=== PATIENT | male | born 1955 | race Caucasian/White ===

== ENCOUNTER 2018-02-25 11:26 | Day surgery (SDC) | payer OTHER ==
[2018-02-25] MEDS ORDERED: FENTAnyl 50 MCG/ML VIAL (14:18)
[2018-02-25] MEDS ORDERED: PROPOFOL 20 ML (14:18)
== END 2018-02-25 17:14 | disposition home or self-care (01) ==
LOC: GIL 11:26
DX: D12.2 Benign neoplasm of ascending colon (principal); K31.89 Other diseases of stomach and duodenum
CPT/HCPCS: 43239; 88305; 88312

== ENCOUNTER → 2018-07-23 | Outpatient (CLI) | payer OTHER | END | disposition home or self-care (01) | LOC: NUC 09:02 | DX: K21.9 Gastro-esophageal reflux disease without esophagitis (principal) | CPT/HCPCS: 78264 ==

== ENCOUNTER 2018-10-26 12:51 | Inpatient (IN) | payer OTHER ==
[2018-10-26 14:08] LABS: ADD MAN DIFF? NO
[2018-10-26 14:13] LABS: WHITE BLOOD COUNT 4.8 10^3/ul (4.8-10.8)
[2018-10-26 14:13] LABS: BASOPHILS % 0.8 % (0.0-2.0); EOSINOPHILS # 0.1 10^3/ul (0.0-0.5); EOSINOPHILS % 1.1 % (0.0-7.0); HEMATOCRIT 34.7 % (42.0-52.0); HEMOGLOBIN 11.2 g/dl (14.0-18.0); LYMPHOCYTES # 1.3 10^3/ul (0.8-2.9); LYMPHOCYTES % 26.3 % (15.0-51.0); MEAN CORPUSCULAR HGB CONC 32.3 g/dl (32.0-37.0); MEAN CORPUSCULAR VOLUME 83.6 fl (82.0-101.0); MEAN PLATELET VOLUME 10.7 fl (7.4-10.4); MONOCYTE # 0.4 10^3/ul (0.3-0.9); MONOCYTES % 8.6 % (0.0-11.0); PLATELET COUNT 313 10^3/UL (140-415); RED BLOOD COUNT 4.15 10^6/ul (4.70-6.10); RED CELL DISTRIBUTION WIDTH 17.3 % (11.5-14.5)
[2018-10-26 14:32] LABS: ALANINE AMINOTRANSFERASE 28 IU/L (13-69); ALBUMIN 3.6 g/dl (3.3-4.9); ALBUMIN/GLOBULIN RATIO 1.24; ALKALINE PHOSPHATASE 65 IU/L (42-121); ANION GAP 6 (5-13); ASPARTATE AMINO TRANSFERASE 24 IU/L (15-46); BILIRUBIN,INDIRECT 0.1 mg/dl (0-1.1); BILIRUBIN,TOTAL 0.1 mg/dl (0.2-1.3); BLOOD UREA NITROGEN 16 mg/dl (7-20); CALCIUM 9.9 mg/dl (8.4-10.2); CARBON DIOXIDE 27 mmol/L (21-31); CHLORIDE 102 mmol/L (97-110); CREATININE 1.02 mg/dl (0.61-1.24); Estimated GFR > 60 mL/min (>60); GLUCOSE 116 mg/dl (70-220); LIPASE 87 U/L (23-300); POTASSIUM 4.2 mmol/L (3.5-5.1); SODIUM 135 mmol/L (135-144); TOTAL PROTEIN 6.5 g/dl (6.1-8.1)
[2018-10-26] MEDS: IOHEXOL 14.3 MG(I)/ML (ADULT) BTL PO (16:29)
[2018-10-26] MEDS ORDERED: ACETAMINOPHEN 325 MG TAB PO (19:00)
[2018-10-26] MEDS ORDERED: ONDANSETRON 4 MG INJ IV ×2 (19:00→19:30)
[2018-10-26] MEDS ORDERED: NACL 0.9% 3 ML SYG IV (19:30)
[2018-10-26] MEDS ORDERED: ALBUTEROL/IPRATROPIUM (NEB) 3 ML AMP HHN (19:30)
[2018-10-26] MEDS ORDERED: DOCUSATE SODIUM 100 MG CAP PO (19:30)
[2018-10-26] MEDS ORDERED: NITROGLYCERIN (SL) 0.4 MG TAB SL (19:30)
[2018-10-26] MEDS ORDERED: LORAZEPAM 2 MG INJ IV (19:30)
[2018-10-26] MEDS ORDERED: hydrALAzine 20 MG INJ IV (19:30)
[2018-10-26] MEDS ORDERED: MAGNESIUM HYDROXIDE 30ML CUP PO (19:30)
[2018-10-26 19:35] LABS: INR 0.96; PROTIME 12.9 Sec (11.9-14.9)
[2018-10-26 19:36] LABS: PARTIAL THROMBOPLASTIN TIME 39.3 Sec (23.0-35.0)
[2018-10-26 20:25] LABS: FREE T4 (FREE THYROXINE) 1.18 ng/dl (0.78-2.44)
[2018-10-26] MEDS: PIPER-TAZO 3.375 GM IV (PMX) 100 ML IVPB (21:50)
[2018-10-26] MEDS: SOD CHLORIDE 0.45% 1,000 ML IV (21:50)
[2018-10-27] MEDS: PANTOPRAZOLE (EC) 40 MG TAB PO (05:08)
[2018-10-27] MEDS: PIPER-TAZO 3.375 GM IV (PMX) 100 ML IVPB ×3 (05:30→22:54)
[2018-10-27 05:36] LABS: ADD MAN DIFF? NO
[2018-10-27 05:42] LABS: WHITE BLOOD COUNT 5.6 10^3/ul (4.8-10.8)
[2018-10-27 05:42] LABS: BASOPHIL # 0.1 10^3/ul (0.0-0.1); BASOPHILS % 0.9 % (0.0-2.0); EOSINOPHILS # 0.1 10^3/ul (0.0-0.5); EOSINOPHILS % 1.3 % (0.0-7.0); HEMATOCRIT 34.7 % (42.0-52.0); HEMOGLOBIN 11.3 g/dl (14.0-18.0); LYMPHOCYTES # 1.3 10^3/ul (0.8-2.9); LYMPHOCYTES % 23.8 % (15.0-51.0); MEAN CORPUSCULAR HEMOGLOBIN 26.8 pg (29.0-33.0); MEAN CORPUSCULAR HGB CONC 32.6 g/dl (32.0-37.0); MEAN CORPUSCULAR VOLUME 82.2 fl (82.0-101.0); MEAN PLATELET VOLUME 10.6 fl (7.4-10.4); MONOCYTE # 0.4 10^3/ul (0.3-0.9); MONOCYTES % 7.7 % (0.0-11.0); NEUTROPHIL # 3.7 10^3/ul (1.6-7.5); NEUTROPHILS % 66.1 % (39.0-77.0); PLATELET COUNT 338 10^3/UL (140-415); RED BLOOD COUNT 4.22 10^6/ul (4.70-6.10)
[2018-10-27 06:10] LABS: CHOLESTEROL 145 mg/dl (100-200)
[2018-10-27 06:10] LABS: CHOL/HDL RATIO 3.3 RATIO; HDL CHOLESTEROL 43 mg/dl (30-78); LDL CHOLESTEROL,CALCULATED 81 mg/dl; TRIGLYCERIDES 105 mg/dl (0-149)
[2018-10-27 06:16] LABS: ANION GAP 5 (5-13); BLOOD UREA NITROGEN 12 mg/dl (7-20); CALCIUM 9.9 mg/dl (8.4-10.2); CARBON DIOXIDE 26 mmol/L (21-31); CHLORIDE 104 mmol/L (97-110); CREATININE 0.98 mg/dl (0.61-1.24); Estimated GFR > 60 mL/min (>60); GLUCOSE 81 mg/dl (70-220); MAGNESIUM 2.1 mg/dl (1.7-2.5); PHOSPHORUS 3.5 mg/dl (2.5-4.9); POTASSIUM 4.4 mmol/L (3.5-5.1); SODIUM 135 mmol/L (135-144)
[2018-10-27 06:32] LABS: THYROID STIMULATING HORMONE 0.682 MIU/L (0.465-4.680)
[2018-10-27 06:52] LABS: HEMOGLOBIN A1C 5.9 % (0-5.9)
[2018-10-27] MEDS: IOHEXOL 300MG/ML 150 ML BTL (08:03)
[2018-10-27] MEDS: SOD CHLORIDE 0.9% 100 ML (08:03)
[2018-10-27] MEDS: SOD CHLORIDE 0.45% 1,000 ML IV (12:01)
[2018-10-27 13:04] LABS: TROPONIN-I < 0.012 ng/ml (0.000-0.120)
[2018-10-27] MEDS ORDERED: SEVOFLURANE 15 MIN (15:32)
[2018-10-27] MEDS ORDERED: FENTAnyl 50 MCG/ML VIAL ×3 (15:32→17:07)
[2018-10-27] MEDS ORDERED: ROCURONIUM 50 MG INJ (15:32)
[2018-10-27] MEDS ORDERED: MIDAZOLAM 1 MG/ML 2 ML INJ (15:32)
[2018-10-27] MEDS ORDERED: PROPOFOL 200 MG INJ (15:32)
[2018-10-27] MEDS ORDERED: ROPIVACAINE 0.2% 20 ML VIAL (15:37)
[2018-10-27] MEDS ORDERED: ONDANSETRON 4 MG INJ (16:46)
[2018-10-27] MEDS ORDERED: CEFAZOLIN 1 GM INJ (16:46)
[2018-10-27] MEDS ORDERED: PHENYLephrine (100 MCG/ML) 10ML SYG (16:46)
[2018-10-27] MEDS ORDERED: FAMOTIDINE 20 MG INJ (16:46)
[2018-10-27] MEDS ORDERED: HETASTARCH 6% NACL 500 ML (16:46)
[2018-10-27] MEDS ORDERED: METOCLOPRAMIDE 10 MG INJ (16:46)
[2018-10-27] MEDS ORDERED: metroNIDAZOLE 500 MG/NS (PMX) 100 ML IVPB (16:46)
[2018-10-27] MEDS ORDERED: SUGAMMADEX SODIUM 200 MG/2 ML VIAL IV (16:48)
[2018-10-27] MEDS: FENTAnyl 50 MCG/ML VIAL IV (17:24)
[2018-10-27] MEDS: HYDROmorphONE 1 MG/5 ML IV SYRINGE IV (17:26)
[2018-10-27] MEDS: ONDANSETRON 4 MG INJ IV (17:26)
[2018-10-27] MEDS ORDERED: EPHEDrine 25 MG/5 ML SYG IV (17:30)
[2018-10-27] MEDS ORDERED: MEPERIDINE 25 MG INJ IV (17:30)
[2018-10-27] MEDS ORDERED: hydrALAzine 20 MG INJ IV (17:30)
[2018-10-27] MEDS ORDERED: HYDROmorphONE 1 MG/5 ML IV SYRINGE IV ×2 (17:30)
[2018-10-27] MEDS ORDERED: DIPHENHYDRAMINE 50 MG INJ IV (17:30)
[2018-10-27] MEDS ORDERED: LABETALOL HCL 20MG INJ IV (17:30)
[2018-10-27] MEDS ORDERED: METOCLOPRAMIDE 10 MG INJ IV (17:30)
[2018-10-27] MEDS ORDERED: FENTAnyl 50 MCG/ML VIAL IV ×2 (17:30)
[2018-10-27] MEDS: morphine 2 MG INJ IV (20:24)
[2018-10-28] MEDS: SOD CHLORIDE 0.45% 1,000 ML IV ×2 (00:10→18:24)
[2018-10-28] MEDS: morphine 4 MG/ML VIAL IV ×6 (00:55→23:42)
[2018-10-28] MEDS ORDERED: morphine 2 MG INJ IV (03:30)
[2018-10-28] MEDS: PIPER-TAZO 3.375 GM IV (PMX) 100 ML IVPB ×3 (05:36→23:42)
[2018-10-28] MEDS: PANTOPRAZOLE (EC) 40 MG TAB PO (05:36)
[2018-10-28] MEDS: PANTOPRAZOLE 40 MG INJ IV (05:36)
[2018-10-28 06:37] LABS: ADD MAN DIFF? NO
[2018-10-28 06:46] LABS: WHITE BLOOD COUNT 11.7 10^3/ul (4.8-10.8)
[2018-10-28 06:46] LABS: BASOPHILS % 0.2 % (0.0-2.0); HEMATOCRIT 35.5 % (42.0-52.0); HEMOGLOBIN 11.5 g/dl (14.0-18.0); LYMPHOCYTES # 0.8 10^3/ul (0.8-2.9); LYMPHOCYTES % 6.4 % (15.0-51.0); MEAN CORPUSCULAR HEMOGLOBIN 26.9 pg (29.0-33.0); MEAN CORPUSCULAR HGB CONC 32.4 g/dl (32.0-37.0); MEAN CORPUSCULAR VOLUME 82.9 fl (82.0-101.0); MEAN PLATELET VOLUME 10.3 fl (7.4-10.4); MONOCYTE # 0.6 10^3/ul (0.3-0.9); MONOCYTES % 4.8 % (0.0-11.0); NEUTROPHIL # 10.3 10^3/ul (1.6-7.5); NEUTROPHILS % 88.2 % (39.0-77.0); PLATELET COUNT 323 10^3/UL (140-415); RED BLOOD COUNT 4.28 10^6/ul (4.70-6.10); RED CELL DISTRIBUTION WIDTH 17.5 % (11.5-14.5)
[2018-10-28 07:01] LABS: ANION GAP 4 (5-13); BLOOD UREA NITROGEN 12 mg/dl (7-20); CALCIUM 8.8 mg/dl (8.4-10.2); CARBON DIOXIDE 25 mmol/L (21-31); CHLORIDE 104 mmol/L (97-110); Estimated GFR > 60 mL/min (>60); GLUCOSE 78 mg/dl (70-220); SODIUM 133 mmol/L (135-144)
[2018-10-29] MEDS: SOD CHLORIDE 0.45% 1,000 ML IV ×2 (02:50→16:10)
[2018-10-29] MEDS: morphine 4 MG/ML VIAL IV ×3 (04:50→20:36)
[2018-10-29] MEDS: PANTOPRAZOLE (EC) 40 MG TAB PO (06:00)
[2018-10-29] MEDS: PANTOPRAZOLE 40 MG INJ IV (06:02)
[2018-10-29] MEDS: PIPER-TAZO 3.375 GM IV (PMX) 100 ML IVPB ×3 (06:02→22:02)
[2018-10-29 06:51] LABS: ADD MAN DIFF? NO
[2018-10-29 07:02] LABS: BASOPHILS % 0.3 % (0.0-2.0); HEMATOCRIT 32.9 % (42.0-52.0); LYMPHOCYTES # 0.7 10^3/ul (0.8-2.9); LYMPHOCYTES % 7.1 % (15.0-51.0); MEAN CORPUSCULAR HEMOGLOBIN 27.2 pg (29.0-33.0); MEAN CORPUSCULAR HGB CONC 33.4 g/dl (32.0-37.0); MEAN CORPUSCULAR VOLUME 81.4 fl (82.0-101.0); MEAN PLATELET VOLUME 10.8 fl (7.4-10.4); MONOCYTE # 0.7 10^3/ul (0.3-0.9); MONOCYTES % 7.1 % (0.0-11.0); NEUTROPHIL # 8.2 10^3/ul (1.6-7.5); NEUTROPHILS % 85.1 % (39.0-77.0); PLATELET COUNT 331 10^3/UL (140-415); RED BLOOD COUNT 4.04 10^6/ul (4.70-6.10); RED CELL DISTRIBUTION WIDTH 17.1 % (11.5-14.5)
[2018-10-29 07:02] LABS: WHITE BLOOD COUNT 9.6 10^3/ul (4.8-10.8)
[2018-10-29 07:20] LABS: ANION GAP 3 (5-13); BLOOD UREA NITROGEN 12 mg/dl (7-20); CARBON DIOXIDE 30 mmol/L (21-31); CHLORIDE 98 mmol/L (97-110); CREATININE 0.99 mg/dl (0.61-1.24); Estimated GFR > 60 mL/min (>60); GLUCOSE 138 mg/dl (70-220); POTASSIUM 4.1 mmol/L (3.5-5.1); SODIUM 131 mmol/L (135-144)
[2018-10-29] MEDS: ENOXAPARIN 40 MG/0.4 ML SYG SC (15:20)
[2018-10-30] MEDS: ACETAMINOPHEN 325 MG TAB PO (00:43)
[2018-10-30] MEDS: PANTOPRAZOLE 40 MG INJ IV (05:58)
[2018-10-30] MEDS: PIPER-TAZO 3.375 GM IV (PMX) 100 ML IVPB ×3 (05:59→21:32)
[2018-10-30 07:29] LABS: ADD MAN DIFF? NO
[2018-10-30 07:34] LABS: WHITE BLOOD COUNT 10.7 10^3/ul (4.8-10.8)
[2018-10-30 07:34] LABS: BASOPHILS % 0.2 % (0.0-2.0); EOSINOPHILS % 0.2 % (0.0-7.0); HEMATOCRIT 32.4 % (42.0-52.0); HEMOGLOBIN 10.7 g/dl (14.0-18.0); LYMPHOCYTES # 0.6 10^3/ul (0.8-2.9); LYMPHOCYTES % 5.9 % (15.0-51.0); MEAN CORPUSCULAR VOLUME 81.6 fl (82.0-101.0); MEAN PLATELET VOLUME 10.6 fl (7.4-10.4); MONOCYTE # 0.5 10^3/ul (0.3-0.9); MONOCYTES % 4.7 % (0.0-11.0); NEUTROPHIL # 9.5 10^3/ul (1.6-7.5); NEUTROPHILS % 88.6 % (39.0-77.0); PLATELET COUNT 314 10^3/UL (140-415); RED BLOOD COUNT 3.97 10^6/ul (4.70-6.10); RED CELL DISTRIBUTION WIDTH 17.1 % (11.5-14.5)
[2018-10-30 07:56] LABS: ANION GAP 3 (5-13); BLOOD UREA NITROGEN 7 mg/dl (7-20); CALCIUM 9.2 mg/dl (8.4-10.2); CARBON DIOXIDE 31 mmol/L (21-31); CHLORIDE 98 mmol/L (97-110); CREATININE 0.84 mg/dl (0.61-1.24); Estimated GFR > 60 mL/min (>60); GLUCOSE 139 mg/dl (70-220); SODIUM 132 mmol/L (135-144)
[2018-10-30] MEDS: ENOXAPARIN 40 MG/0.4 ML SYG SC (08:24)
[2018-10-30] MEDS: HYDROCODONE/APAP (5/325) TAB PO ×2 (09:48→19:53)
[2018-10-30] MEDS: morphine 2 MG INJ IV (14:01)
[2018-10-30] MEDS: ONDANSETRON 4 MG INJ IV (17:32)
[2018-10-30] MEDS: morphine 4 MG/ML VIAL IV (21:45)
[2018-10-31] MEDS: ONDANSETRON 4 MG INJ IV ×2 (00:43→08:09)
[2018-10-31] MEDS: morphine 4 MG/ML VIAL IV ×4 (03:04→21:11)
[2018-10-31] MEDS: PIPER-TAZO 3.375 GM IV (PMX) 100 ML IVPB ×3 (06:00→21:11)
[2018-10-31] MEDS: PANTOPRAZOLE 40 MG INJ IV (06:01)
[2018-10-31 06:10] LABS: ADD MAN DIFF? NO
[2018-10-31 06:17] LABS: WHITE BLOOD COUNT 12.7 10^3/ul (4.8-10.8)
[2018-10-31 06:17] LABS: BASOPHILS % 0.2 % (0.0-2.0); EOSINOPHILS % 0.2 % (0.0-7.0); HEMATOCRIT 37.7 % (42.0-52.0); HEMOGLOBIN 12.5 g/dl (14.0-18.0); LYMPHOCYTES # 0.6 10^3/ul (0.8-2.9); LYMPHOCYTES % 4.9 % (15.0-51.0); MEAN CORPUSCULAR HEMOGLOBIN 27.1 pg (29.0-33.0); MEAN CORPUSCULAR HGB CONC 33.2 g/dl (32.0-37.0); MEAN CORPUSCULAR VOLUME 81.6 fl (82.0-101.0); MEAN PLATELET VOLUME 10.7 fl (7.4-10.4); MONOCYTE # 0.7 10^3/ul (0.3-0.9); MONOCYTES % 5.3 % (0.0-11.0); NEUTROPHIL # 11.3 10^3/ul (1.6-7.5); PLATELET COUNT 390 10^3/UL (140-415); RED BLOOD COUNT 4.62 10^6/ul (4.70-6.10); RED CELL DISTRIBUTION WIDTH 17.2 % (11.5-14.5)
[2018-10-31 06:47] LABS: ANION GAP 7 (5-13); BLOOD UREA NITROGEN 11 mg/dl (7-20); CARBON DIOXIDE 32 mmol/L (21-31); CHLORIDE 96 mmol/L (97-110); CREATININE 1.03 mg/dl (0.61-1.24); Estimated GFR > 60 mL/min (>60); GLUCOSE 137 mg/dl (70-220); POTASSIUM 3.9 mmol/L (3.5-5.1); SODIUM 135 mmol/L (135-144)
[2018-10-31] MEDS: ENOXAPARIN 40 MG/0.4 ML SYG SC (08:11)
[2018-10-31] MEDS: NEOMYC/POLYMYX/BACIT 0.9 GM OINT TOP ×2 (12:01→21:10)
[2018-10-31] MEDS: SOD CHLORIDE 0.9% 1,000 ML IV ×2 (14:06→23:30)
[2018-11-01] MEDS: ONDANSETRON 4 MG INJ IV ×2 (00:48→08:09)
[2018-11-01] MEDS: SOD CHLORIDE 0.9% 1,000 ML IV ×2 (01:40→15:54)
[2018-11-01] MEDS: PIPER-TAZO 3.375 GM IV (PMX) 100 ML IVPB ×2 (05:26→14:33)
[2018-11-01] MEDS: PANTOPRAZOLE (EC) 40 MG TAB PO ×2 (05:28→06:00)
[2018-11-01 06:09] LABS: ADD MAN DIFF? NO
[2018-11-01 06:19] LABS: ABNORMAL IP MESSAGE 1; BASOPHILS % 0.3 % (0.0-2.0); EOSINOPHILS % 0.1 % (0.0-7.0); HEMOGLOBIN 9.6 g/dl (14.0-18.0); LYMPHOCYTES # 0.5 10^3/ul (0.8-2.9); LYMPHOCYTES % 6.9 % (15.0-51.0); MEAN CORPUSCULAR HEMOGLOBIN 27.1 pg (29.0-33.0); MEAN CORPUSCULAR HGB CONC 33.1 g/dl (32.0-37.0); MEAN CORPUSCULAR VOLUME 81.9 fl (82.0-101.0); MEAN PLATELET VOLUME 10.7 fl (7.4-10.4); MONOCYTE # 0.6 10^3/ul (0.3-0.9); MONOCYTES % 7.3 % (0.0-11.0); NEUTROPHIL # 6.7 10^3/ul (1.6-7.5); NEUTROPHILS % 85.1 % (39.0-77.0); PLATELET COUNT 340 10^3/UL (140-415); POSITIVE DIFF @See below; RED BLOOD COUNT 3.54 10^6/ul (4.70-6.10); RED CELL DISTRIBUTION WIDTH 17.5 % (11.5-14.5)
[2018-11-01 06:19] LABS: WHITE BLOOD COUNT 7.8 10^3/ul (4.8-10.8)
[2018-11-01 06:53] LABS: ANION GAP 4 (5-13); BLOOD UREA NITROGEN 21 mg/dl (7-20); CALCIUM 9.1 mg/dl (8.4-10.2); CARBON DIOXIDE 31 mmol/L (21-31); CHLORIDE 101 mmol/L (97-110); CREATININE 0.98 mg/dl (0.61-1.24); Estimated GFR > 60 mL/min (>60); GLUCOSE 109 mg/dl (70-220); POTASSIUM 4.1 mmol/L (3.5-5.1); SODIUM 136 mmol/L (135-144)
[2018-11-01] MEDS: NEOMYC/POLYMYX/BACIT 0.9 GM OINT TOP ×2 (08:00→21:00)
[2018-11-01] MEDS: morphine 4 MG/ML VIAL IV ×4 (08:00→21:14)
[2018-11-01] MEDS: ENOXAPARIN 40 MG/0.4 ML SYG SC (08:03)
[2018-11-01] MEDS: METOCLOPRAMIDE 10 MG INJ IV (17:13)
[2018-11-02] MEDS: PIPER-TAZO 3.375 GM IV (PMX) 100 ML IVPB ×4 (00:21→21:31)
[2018-11-02] MEDS: METOCLOPRAMIDE 10 MG INJ IV ×4 (00:56→17:47)
[2018-11-02 06:24] LABS: ADD MAN DIFF? NO
[2018-11-02 06:26] LABS: BASOPHILS % 0.3 % (0.0-2.0); EOSINOPHILS # 0.1 10^3/ul (0.0-0.5); EOSINOPHILS % 0.9 % (0.0-7.0); HEMATOCRIT 26.2 % (42.0-52.0); HEMOGLOBIN 8.5 g/dl (14.0-18.0); LYMPHOCYTES # 0.8 10^3/ul (0.8-2.9); LYMPHOCYTES % 9.9 % (15.0-51.0); MEAN CORPUSCULAR HEMOGLOBIN 27.3 pg (29.0-33.0); MEAN CORPUSCULAR HGB CONC 32.4 g/dl (32.0-37.0); MEAN CORPUSCULAR VOLUME 84.2 fl (82.0-101.0); MEAN PLATELET VOLUME 10.2 fl (7.4-10.4); MONOCYTE # 0.7 10^3/ul (0.3-0.9); MONOCYTES % 8.4 % (0.0-11.0); NEUTROPHIL # 6.2 10^3/ul (1.6-7.5); NEUTROPHILS % 80.2 % (39.0-77.0); PLATELET COUNT 309 10^3/UL (140-415); RED BLOOD COUNT 3.11 10^6/ul (4.70-6.10); RED CELL DISTRIBUTION WIDTH 17.9 % (11.5-14.5)
[2018-11-02 06:26] LABS: WHITE BLOOD COUNT 7.8 10^3/ul (4.8-10.8)
[2018-11-02] MEDS: SOD CHLORIDE 0.9% 1,000 ML IV ×2 (06:39→15:30)
[2018-11-02] MEDS: PANTOPRAZOLE (EC) 40 MG TAB PO (06:40)
[2018-11-02] MEDS: morphine 4 MG/ML VIAL IV ×2 (06:56→13:24)
[2018-11-02 07:06] LABS: ANION GAP 4 (5-13); BLOOD UREA NITROGEN 15 mg/dl (7-20); CARBON DIOXIDE 26 mmol/L (21-31); CHLORIDE 105 mmol/L (97-110); CREATININE 0.82 mg/dl (0.61-1.24); Estimated GFR > 60 mL/min (>60); GLUCOSE 96 mg/dl (70-220); POTASSIUM 3.5 mmol/L (3.5-5.1); SODIUM 135 mmol/L (135-144)
[2018-11-02] MEDS: ENOXAPARIN 40 MG/0.4 ML SYG SC (09:30)
[2018-11-02] MEDS: NEOMYC/POLYMYX/BACIT 0.9 GM OINT TOP ×2 (16:53→21:32)
[2018-11-03] MEDS: METOCLOPRAMIDE 10 MG INJ IV ×4 (00:45→17:39)
[2018-11-03] MEDS: SOD CHLORIDE 0.9% 1,000 ML IV ×5 (01:14→21:30)
[2018-11-03 05:57] LABS: ADD MAN DIFF? NO
[2018-11-03] MEDS: PIPER-TAZO 3.375 GM IV (PMX) 100 ML IVPB ×3 (05:59→22:27)
[2018-11-03] MEDS: PANTOPRAZOLE (EC) 40 MG TAB PO (06:00)
[2018-11-03 06:08] LABS: WHITE BLOOD COUNT 8.1 10^3/ul (4.8-10.8)
[2018-11-03 06:08] LABS: BASOPHILS % 0.4 % (0.0-2.0); EOSINOPHILS # 0.1 10^3/ul (0.0-0.5); EOSINOPHILS % 1.6 % (0.0-7.0); HEMATOCRIT 28.1 % (42.0-52.0); HEMOGLOBIN 9.1 g/dl (14.0-18.0); LYMPHOCYTES # 0.8 10^3/ul (0.8-2.9); LYMPHOCYTES % 9.7 % (15.0-51.0); MEAN CORPUSCULAR HEMOGLOBIN 26.9 pg (29.0-33.0); MEAN CORPUSCULAR HGB CONC 32.4 g/dl (32.0-37.0); MEAN CORPUSCULAR VOLUME 83.1 fl (82.0-101.0); MEAN PLATELET VOLUME 10.6 fl (7.4-10.4); MONOCYTE # 0.5 10^3/ul (0.3-0.9); MONOCYTES % 6.4 % (0.0-11.0); NEUTROPHIL # 6.6 10^3/ul (1.6-7.5); NEUTROPHILS % 81.5 % (39.0-77.0); PLATELET COUNT 349 10^3/UL (140-415); RED BLOOD COUNT 3.38 10^6/ul (4.70-6.10); RED CELL DISTRIBUTION WIDTH 18.1 % (11.5-14.5)
[2018-11-03 06:40] LABS: ANION GAP 6 (5-13); BLOOD UREA NITROGEN 12 mg/dl (7-20); CALCIUM 8.7 mg/dl (8.4-10.2); CARBON DIOXIDE 26 mmol/L (21-31); CHLORIDE 103 mmol/L (97-110); CREATININE 0.75 mg/dl (0.61-1.24); Estimated GFR > 60 mL/min (>60); GLUCOSE 64 mg/dl (70-220); POTASSIUM 3.5 mmol/L (3.5-5.1); SODIUM 135 mmol/L (135-144)
[2018-11-03] MEDS: NEOMYC/POLYMYX/BACIT 0.9 GM OINT TOP ×2 (08:19→22:28)
[2018-11-03] MEDS: ENOXAPARIN 40 MG/0.4 ML SYG SC (08:20)
[2018-11-03] MEDS: morphine 4 MG/ML VIAL IV ×2 (10:49→17:45)
[2018-11-04] MEDS: METOCLOPRAMIDE 10 MG INJ IV ×3 (00:27→12:18)
[2018-11-04] MEDS: morphine 4 MG/ML VIAL IV (00:32)
[2018-11-04] MEDS: PIPER-TAZO 3.375 GM IV (PMX) 100 ML IVPB ×2 (05:51→13:39)
[2018-11-04] MEDS: PANTOPRAZOLE (EC) 40 MG TAB PO (05:51)
[2018-11-04] MEDS: NEOMYC/POLYMYX/BACIT 0.9 GM OINT TOP (08:53)
[2018-11-04] MEDS: ENOXAPARIN 40 MG/0.4 ML SYG SC (08:53)
== END 2018-11-04 15:55 | disposition home health service (06) | DRG 330 ==
LOC: TEL 10-28 17:46 → 2NE 10-31 00:20 → E/R 12:51 → TEL 10-27 13:55 → 2NE 18:54
PROC: 0DBL0ZZ Excision of Transverse Colon, Open Approach (ICD-10-PCS; principal; 2018-10-27 15:29)
PROC: 0D1L0Z4 Bypass Transverse Colon to Cutaneous, Open Approach (ICD-10-PCS; 2018-10-27 15:29)
DX: K63.1 Perforation of intestine (nontraumatic) (principal); E87.1 Hypo-osmolality and hyponatremia; K91.30 Postprocedural intestinal obstruction, unspecified as to partial versus complete; R13.10 Dysphagia, unspecified; D64.9 Anemia, unspecified; K63.89 Other specified diseases of intestine; K21.9 Gastro-esophageal reflux disease without esophagitis; F17.200 Nicotine dependence, unspecified, uncomplicated; Z87.11 Personal history of peptic ulcer disease; Y84.8 Other medical procedures as the cause of abnormal reaction of the patient, or of later complication, without mention of misadventure at the time of the procedure; Y92.230 Patient room in hospital as the place of occurrence of the external cause
CPT/HCPCS: 71045; 74018; 74176; 74177; 80048; 80053; 80061; 83036; 83690; 83735; 84100; 84439; 84443; 84484; 85025; 85610; 85730; 86850; 86900; 86901; 87086; 88305; 93005; 93306; 97110; 97116; 97162; 97530; 99285-25